=== PATIENT | female | born 1950 | race Caucasian/White ===

== ENCOUNTER 2025-03-11 06:39 | Inpatient (IN) | payer BC, SELFPAY ==
[2025-02-26 09:23] VITALS: BMI 35.9
[2025-02-26 10:02] LABS: Hematocrit 38.6 % (37.0-47.0); Hemoglobin 13.2 g/dL (12.0-16.0); Mean Corp Hgb Conc. 34.2 g/dL (33.0-37.0); Mean Corpuscular Volume 92.3 fL (81.0-99.0); Nucleated Red Blood Cells % 0 %; Platelet Count 147 10^3/uL (130-400); Red Cell Dist. Width 11.8 % (11.5-14.5)
[2025-02-26 10:14] LABS: APTT 29.8 Sec (23.4-35.0); INR 0.99; PT 13.4 Sec (11.4-14.6)
[2025-02-26 12:52] LABS: Blood Urea Nitrogen 20 mg/dl (7-17); Calcium 9.8 mg/dl (8.4-10.2); Carbon Dioxide 30 mmol/L (22-30); Chloride 99 mmol/L (98-107); Estimated Creatinine Clearance 64 ml/min; Glucose 95 mg/dl (70-99); Potassium 4.8 mmol/L (3.5-5.1); Sodium 134 mmol/L (135-145); eGFR > 60.00
[2025-03-11] VITALS (12 sets, daily range): BP systolic 85–162; BP diastolic 51–78; BMI 35.8; BMI 37.4
--- NOTE | 2025-03-11 07:04 | HP.FOC2 ---
Focused History & Physical
Chief Complaint
HPI:
Chief Complaint: AAA
HPI / Indication for Planned Procedure: 75-year-old female with past medical history significant for AAA, COPD, chronic kidney disease stage III, hypertension, GERD, COPD presenting today for planned outpatient EVAR with Dr. Hanson. Patient presents
at baseline health. Denies recent illnesses or trauma. No change in medications since last office visit.
Relevant Past Medical History: Other (A, osteoporosis, atherosclerosis, chronic kidney disease stage IIIa, hypertension, GERD, vitamin D deficiency, COPD, vertigo)
Relevant Social History: Tobacco Use (1 pack/day quit in 2001)
Relevant Family History: Positive for (Alzheimer's disease, stroke, hypertension, COPD)
Relevant Past Surgical History: Positive for (Total hysterectomy, cholecystectomy, cardiac cath)
Review of Systems
Review of Pertinent Systems: All Systems Negative
Medication
See Medication form for detailed medications: Yes
Medication List (including Herbals & OTC):
albuterol sulfate 90 mcg/actuation aerosol inhaler 2 puff inhalation PRN PRN SOB 02/22/25
aspirin 81 mg tablet,delayed release 81 mg PO DAILY 02/22/25
bisoprolol 10 mg-hydrochlorothiazide 6.25 mg tablet 1 tab PO HS 02/22/25
cholecalciferol (vitamin D3) 50 mcg (2,000 unit) capsule (Vitamin D3) 50 mcg PO DAILY 02/22/25
clonidine HCl 0.1 mg tablet 0.05 mg PO DAILY 02/22/25
clonidine HCl 0.1 mg tablet 0.1 mg PO HS 02/22/25
hydrochlorothiazide 12.5 mg tablet 12.5 mg PO DAILY 02/22/25
lisinopril 40 mg tablet 40 mg PO HS 02/22/25
meclizine 12.5 mg tablet 12.5 mg PO TID PRN BPPV 02/22/25
meloxicam 15 mg tablet 15 mg PO PRN PRN PAIN 02/22/25
montelukast 10 mg tablet (Singulair) 10 mg PO HS 02/22/25
multivitamin 1 tab PO DAILY 02/22/25
tiotropium 2.5 mcg-olodaterol 2.5 mcg/actuation mist for inhalation (Stiolto Respimat) 2 puff inhalation DAILY 02/22/25
Medications Reviewed: Yes
Allergies and Reactions
Patient has Allergies: Yes
Noted Allergies and Reactions:
Allergy/AdvReac Type Severity Reaction Status Date / Time
pollen extracts Allergy SEASONAL Verified 02/22/25 09:14
ALLERGIES
Pertinent Physical Exam
All Other Systems: Negative
Head/Neck: Normal
Lungs: Normal
Heart: Normal
Abdomen: Normal
Extremities: Normal
Neurological: Normal
Diagnosis / Assessment
AAA
Plan / Procedure
Planned EVAR with Dr. Hanson for AAA
Anesthesia/Sedation to be done by Anesthesia Provider: Yes
[2025-03-11] MEDS: PERIDEX 0.12% ORAL RINSE 15 ML PO (08:02)
[2025-03-11] MEDS: BACTROBAN NASAL 1 GRAM NASAL (08:03)
[2025-03-11] MEDS: NSS 500 IV (08:06)
--- NOTE | 2025-03-11 08:40 | W.SUR.PREOP ---
Pre-Operative Surgical Note
-
I have examined this patient prior to the performance of the scheduled procedure.
The patient's condition is unchanged from the time of the current History and
Physical and the patient is able to undergo the scheduled procedure.
[2025-03-11 09:47] LABS: ACT-LR - POC 334 Seconds (116-155)
--- NOTE | 2025-03-11 10:36 | W.IMMPOSTOP ---
Surgical Immed Post Op Note
-
Primary Surgeon: John Hanson III, MD
Assisting Surgeon: Ernie Correa MD PGY2
Pre-op Diagnosis: Infrarenal AAA
Post-op Diagnosis: Infrarenal AAA
Procedure Performed: EVAR ([place])
Anesthesia Type: General
Specimen / Cultures: None
Estimated Blood Loss: 4 cc
Complications: None
Operative Findings: EVAR for infrarenal AAA
--- NOTE | 2025-03-11 10:39 | CON.INTV ---
Consultation
Consultation Request
Date/Time Consultation Requested: 03/11/2025 - 1016
Date/Time Consultation Performed: 03/11/2025 - 1032
Requesting Provider: SCAR Jc
Performing Provider: Dr. Mckeon
Reason for Consultation: s/p EVAR
Medical History
-
Chief Complaint: Elective EVAR
History of Present Illness:
75-year-old female with a past medical history of infrarenal abdominal aortic aneurysm, osteoporosis, CKD, hypertension, GERD, history of COPD, sleep apnea on CPAP and vertigo who presents for elective EVAR. Patient known to vascular surgery with
last visit on 02/06/[address] Hanson. CTA from June 2024 shows a 5 cm infrarenal AAA. Conversation held with vascular surgery and operative repair was recommended. Today, patient underwent endovascular aortic aneurysm repair using Endologix
[place] device. There were no immediate complications with EBL 25 cc. Patient transferred to the ICU postoperatively for further care and Tower Switch Operator services consulted for additional management/recommendations.
When I saw the patient she was resting in bed in no acute distress, currently on Cardene at 5 mg/h + normal saline at 80 cc an hour. Heart rate 60, BP via A-line 134/56, and saturating 96% on 2 L/min nasal cannula. Patient's son, Darron and daughter,
Lacey, present at bedside. All questions were answered.
PMHx: AAA, osteoporosis, CKD, hypertension, GERD, vitamin D deficiency, history of COPD, sleep apnea on CPAP, vertigo
PSHx: Total hysterectomy, cholecystectomy, myringotomy with insertion of tube, cardiac cath (09/2020
Past Medical History
Past Medical History: Other (above as per HPI)
Past Surgical History: Other (above as per HPI)
Social History
Tobacco: Former Smoker (Smoked 1 PPD x 32 years; quit 2001)
Alcohol: Occasional
Drug: None
Family History
Family History: Hypertension (Mother) and Other (Father: Alcoholism, chronic airway obstruction; mother: Alzheimer disease, stroke)
Allergies / Home Medications
Allergies
Allergy/AdvReac Type Severity Reaction Status Date / Time
pollen extracts Allergy SEASONAL Verified 02/22/25 09:14
ALLERGIES
Home Medications
�Medication �Instructions �Recorded �Confirmed �Last Taken �Type
albuterol sulfate 90 mcg/actuation 2 puff inhalation PRN PRN SOB 02/22/25 03/11/25 6 Weeks Ago History
aerosol inhaler ~01/28/25
aspirin 81 mg tablet,delayed 81 mg PO DAILY 02/22/25 03/11/25 03/11/25 06:00 History
release
bisoprolol 10 1 tab PO HS 02/22/25 03/11/25 03/10/25 21:30 History
mg-hydrochlorothiazide 6.25 mg
tablet
cholecalciferol (vitamin D3) 50 50 mcg PO DAILY 02/22/25 03/11/25 03/09/25 07:00 History
mcg (2,000 unit) capsule (Vitamin
D3)
clonidine HCl 0.1 mg tablet 0.05 mg PO DAILY 02/22/25 03/11/25 03/11/25 06:00 History
clonidine HCl 0.1 mg tablet 0.1 mg PO HS 02/22/25 03/11/25 03/10/25 21:30 History
hydrochlorothiazide 12.5 mg tablet 12.5 mg PO DAILY 02/22/25 03/11/25 03/10/25 07:00 History
lisinopril 40 mg tablet 40 mg PO HS 02/22/25 03/11/25 03/10/25 21:30 History
meclizine 12.5 mg tablet 12.5 mg PO TID PRN BPPV 02/22/25 03/11/25 3 Months Ago History
~12/09/24
meloxicam 15 mg tablet 15 mg PO PRN PRN PAIN 02/22/25 03/11/25 2 Weeks Ago History
~02/25/25
montelukast 10 mg tablet 10 mg PO HS 02/22/25 03/11/25 03/10/25 21:00 History
(Singulair)
multivitamin 1 tab PO DAILY 02/22/25 03/11/25 03/09/25 07:00 History
tiotropium 2.5 mcg-olodaterol 2.5 2 puff inhalation DAILY 02/22/25 03/11/25 03/11/25 05:00 History
mcg/actuation mist for inhalation
(Stiolto Respimat)
Review of Systems
-
History Source: Patient
All other systems: Negative unless noted
Vitals / Labs / Diagnostic Testing
Vital Signs
Temp Pulse Resp BP Pulse Ox
97.3 F 69 17 138/57 98
03/11/25 11:00 03/11/25 11:15 03/11/25 08:15 03/11/25 11:15 03/11/25 11:15
Lab Data
02/26/25 09:34
Diagnostic Testing:
Physical Exam
-
HEENT: Normocephalic and Anicteric
Cardiovascular: S1/S2 and Peripheral Edema (+1 lower extremity pitting edema bilaterally)
Respiratory: Wheeze (negative), Rales (negative), Rhonchi (negative) and Non-Labored Respirations
GI: Soft, Distended (Abdominal obesity), Non Tender and Normal Bowel Sounds
Neurology: Awake, Alert, Oriented and Tremors (neg)
Skin: Warm, Dry and Other (Puncture sites on bilateral femoral regions with no active bleeding or hematoma appreciated)
General: Respiratory Distress (negative), Comfortable, Fever (negative) and Chills (negative)
Assessment
-
Assessment: 75-year-old female with a past medical history of infrarenal abdominal aortic aneurysm, osteoporosis, CKD, hypertension, GERD, history of COPD, sleep apnea on CPAP and vertigo who presents for elective EVAR. Patient known to vascular
surgery with last visit on 02/06/[address] Hanson. CTA from June 2024 shows a 5 cm infrarenal AAA. Conversation held with vascular surgery and operative repair was recommended. Today, patient underwent endovascular aortic aneurysm repair
using Endologix [place] device. There were no immediate complications with EBL 25 cc. Patient transferred to the ICU postoperatively for further care and Tower Switch Operator services consulted for additional management/recommendations.
Chronic conditions LEAD GENERATOR: AAA, osteoporosis, CKD, hypertension, GERD, vitamin D deficiency, history of COPD, sleep apnea on CPAP, vertigo
Impression:
#Abdominal aortic aneurysm s/p endovascular aortic aneurysm repair using Endologix [place] device (POD #0)
#Obesity (BMI: 37.4)
#History of COPD on Stiolto + prn albuterol
#Sleep apnea on CPAP
#History of vertigo
#Hypertension
#GERD
#CKD
#Former tobacco smoker
Plan:
Postoperative surgical intensive care unit monitoring
Supplemental oxygen as needed to maintain SpO2 88-95% (given Hx of COPD - of note, she does not follow with us in office, and I have no spirometry/PFTs to confirm presence of COPD)
prn nebulized bronchodilators - not currently bronchospastic
Continue spiriva, and add Striverdi --> resume Stiolto upon discharge
Incentive spirometry encouraged 10x per hour for at least 4 hrs a day
Aspiration precautions
Pain control
Neuro and vascular checks per protocol
Maintain MAP>65
Replete electrolytes with K>4, Mg>2
Maintain euglycemia with goal BG 140-180
Vascular surgery following-correspondence and operative notes reviewed
Transfuse blood products as needed to keep Hb>7g/dL, and plt>50k (given post-operative status)
DVT prophylaxis
Early nutrition
Early mobilization
Critical care statement: A total of 44 minutes of critical care time was provided for this patient today. This includes management of unstable vital signs, evaluation of the patient at bedside, reviewing the patient's pertinent medical records
including radiographs, microbiology, laboratory evaluations, and discussion with primary team, consultants, pharmacy, nutrition, physical therapy, case management, charge nurse, critical care nursing, and respiratory therapy.
[2025-03-11] MEDS: SUBLIMAZE 25 MCG IV (11:27)
--- NOTE | 2025-03-11 11:34 | OR.RPT ---
Operative Report
Operative Report
Date of Operation: 03/11/2025
Pre Op Diagnosis: Abdominal aortic aneurysm
Post Op Diagnosis: Abdominal aortic aneurysm
Procedure:
1. Endovascular aortic aneurysm repair using Endologix [place] device:
23 mm [place] main body
12 mm x 140 mm BILATERAL iliac limb extensions
2. Ultrasound guided percutaneous access to the BILATERAL common femoral arteries
3. Proglide closure device to bilateral femoral artery access
Surgeon: John Hanosn III, MD
Toll Lineman: Ernie Correa MD PGY2
Anesthesia: General
Fluoroscopy:
28.3 minutes
1065 mGy
DAP: 328.07
Complications: None
Estimated Blood Loss: 25 cc
History and Indications for Procedure: 75-year-old female with infrarenal abdominal aortic aneurysm
Procedure in Detail: Clemente Correa was correctly identified and placed supine on the operating table. After adequate induction of anesthesia the abdomen, pelvis and bilateral groins were positioned, prepped and draped in the usual sterile fashion.
Preoperative antibiotics were administered. A timeout procedure was performed with the nursing and anesthesia staff confirming the patients identity as well as the nature and laterality of the procedure.
Under ultrasound guidance, bilateral femoral artery sheath access was obtained. The arteries were patent and without significant calcification. Ultrasound images of the femoral arteries were saved to the medical record. A pre-close technique was
performed bilaterally with 2 offset Proglide closure devices. The sutures were secured and tucked under surgical towels for use at the end of the case. 11 Lao sheaths were placed bilaterally. The patient was systemically heparinized.
From the right femoral access an KMP catheter and Bentson wire were advanced to the proximal descending thoracic aorta. The wire was exchanged out through the KMP catheter for a Lunderquist wire. From the left femoral access a Bentson wire was
advanced into the abdominal aorta. A marker pigtail catheter was then placed at the level of L1 for angiographic purposes.
The 23 mm ALTO aortic main body device was then loaded onto the right Lunderquist wire after removing the initial femoral sheath. The delivery system and aortic main body were oriented to the desired position. The delivery system was advanced into
the abdominal aorta. An aortogram was performed and identified the origins of the renal arteries bilaterally. The delivery system was then positioned such that the radiopaque fabric markers were just below the lowest renal artery.
The outer sheath was then retracted until the knob met the handle. The first segment of the suprarenal fixation was then deployed by turning the yellow release knob and pulling. I removed the white cap from the balloon injection port and inflated
the integrated balloon with 5 cc of 4:1 saline:contrast to open the mid crown. I then completely deflated the integrated balloon.
Using the radiopaque markers for orientation, the C-arm was positioned to eliminate parallax. Another aortogram was performed under magnification. The main body was then precisely positioned below the lowest renal artery (left). The pigtail catheter
was pulled down into the aneurysm away from the suprarenal fixation stent. With the main body in the desired location the remainder of the suprarenal fixation stent was deployed by pulling the second release knob.
The polymer was prepared on the back table. The green fill cap was then removed from the polymer injection port on the handle and the fill syringe was attached to it.The autoinjector was connected to the fill syringe and polymer was instilled.
Fluoro was used to intermittently observe filling of the main body with polymer. A timer was started to keep track of the polymer set time.
As the polymer was instilling a glidewire was introduced through the pigtail catheter from the left femoral access. Using a KMP catheter and a glidewire, contralateral gate access was obtained. The catheter was spun in the main body to confirm
proper position. The glidewire and catheter were then advanced proximally. The wire was exchanged out for a short floppy tip Amplatz wire. A marker pigtail catheter was inserted over the stiff wire.
A retrograde arteriogram was performed in an oblique C-arm projection to visualize the iliac bifurcation and to measure lengths. A 12 mm x 140 mm iliac limb was then inserted over the stiff wire and advanced to the proper position with proper
overlap. The limb was deployed without difficulty under roadmap guidance with the distal end in the the common iliac artery, preserving the iliac bifurcation.
After the appropriate time point for polymer fill, the integrated balloon was used to profile of the proximal aortic seal zone.
The third release knob was pulled to release the catheter from the aortic main body. The catheter handle on the main body deployment system was retracted to reseat the nosecone in the delivery system outer sheath.
A retrograde arteriogram was then performed on the right with a pigtail catheter over the stiff wire. The iliac bifurcation was visualized and lengths were measured for the ipsilateral iliac limb. A 12 mm x 140 mm iliac limb was inserted on the
right under fluoro. Proper overlap was obtained. The limb was deployed under roadmap guidance without difficulty.
12 mm angioplasty balloons were inserted over the wires bilaterally and used to profile both iliac limbs simultaneously from the flow divider and proximal seal zone all the way through the limbs and the distal seal zones bilaterally. The left
femoral balloon was readvanced into the main body and the Amplatz wire removed. A pigtail catheter was inserted on the right and advanced to the proximal main body.
A completion aortogram demonstrated an excellent technical result. The aneurysm was excluded. No endoleaks were seen. There was brisk flow through the stent and iliac limbs. The renal arteries were widely patent bilaterally. The iliac bifurcations
were preserved bilaterally.
The Proglide sutures were secured bilaterally after removing the sheaths and wires. Protamine was administered. Additional pressure was applied to the puncture sites bilaterally. Hemostasis was achieved bilaterally. Sterile skin glue was applied.
The patient tolerated the procedure well and was taken to the PACU in stable condition.
Attestation: I was present and responsible for the entire procedure
Signed:
John Hanson III, MD
Vascular Surgery
[facility]
[2025-03-11 11:39] LABS: ALT (SGPT) 17 U/L (0-35); AST (SGOT) 24 U/L (14-36); Albumin 3.8 g/dl (3.5-5.0); Alkaline Phosphatase 92 U/L (38-126); Total Protein 6.9 g/dl (6.3-8.2)
[2025-03-11 11:43] LABS: Hematocrit 37.5 % (37.0-47.0); Hemoglobin 12.8 g/dL (12.0-16.0); Mean Corp Hgb Conc. 34.1 g/dL (33.0-37.0); Mean Corpuscular Volume 90.1 fL (81.0-99.0); Platelet Count 133 10^3/uL (130-400); Red Cell Dist. Width 11.9 % (11.5-14.5)
[2025-03-11 12:16] LABS: Glucose - Point of Care 127 mg/dl (70-99)
[2025-03-11] MEDS: ROXICODONE 5 MG PO ×2 (12:42→18:14)
[2025-03-11] MEDS: NSS 1000 IV ×2 (12:45→21:01)
--- NOTE | 2025-03-11 13:44 | PTCARENOTE ---
Pt admitted from PACU @ 1200 s/p EVAR. Assessment as noted. SR with Cardene infusing to keep SBP within parameters. Afebrile, palpable pedal pulses with cap refill WNL. Flat for 2 hr then HOB to 30deg. 2L NC applied after facemask removed. Saldaña in
place draining clear yellow urine. Pt states saldaña causing most discomfort. Vasc team notified and order recieved to remove saldaña. Saldaña removed without issue. Bilat femoral artery access sites soft, flat, with ecchymosis noted, Neurovasc and wound
sites checks ongoing as ordered. NSS infusing, tolerating clear liq, advancing diet to low chol. A-line leveled and zeroed. Family at bedside and plan of care discussed.
--- NOTE | 2025-03-11 15:13 | PTCARENOTE ---
Small opening noted at right groin site with serosanguineous drainage. Vasc team notified
[2025-03-11] MEDS: HEPARIN 5000 UNITS SC ×2 (16:04→23:59)
--- NOTE | 2025-03-11 16:12 | PTCARENOTE ---
Assessment unchanged. Family at bedside with pt in good spirits. Cardene weaned off at this time.
[2025-03-11] MEDS: LIPITOR 10 MG PO (18:14)
--- NOTE | 2025-03-11 20:00 | PTCARENOTE ---
mental health case manager, pt aaox3, B/L IV WNL- IVF infusing per work list. L rad AL leveled, zeroed. SR HR 60s. RA Sat 93%. POC discussed, call wright with pt.
[2025-03-11] MEDS: ORETIC 6.25 MG PO (20:56)
[2025-03-11] MEDS: ZESTRIL 40 MG PO (21:00)
[2025-03-11] MEDS: ZEBETA 10 MG PO (21:00)
[2025-03-11] MEDS: SINGULAIR 10 MG PO (21:00)
[2025-03-11] MEDS: CATAPRES 0.1 MG PO (21:00)
[2025-03-12 04:21] VITALS: BMI 36.9
[2025-03-12 04:59] LABS: Hematocrit 33.4 % (37.0-47.0); Hemoglobin 11.6 g/dL (12.0-16.0); Mean Corp Hgb Conc. 34.7 g/dL (33.0-37.0); Mean Corpuscular Volume 89.1 fL (81.0-99.0); Red Cell Dist. Width 11.9 % (11.5-14.5)
[2025-03-12 05:06] LABS: INR 1.05; PT 14.0 Sec (11.4-14.6)
[2025-03-12 05:07] LABS: APTT 31.2 Sec (23.4-35.0)
[2025-03-12 06:28] LABS: Platelet Count 130 10^3/uL (130-400)
[2025-03-12 07:22] LABS: Blood Urea Nitrogen 15 mg/dl (7-17); Calcium 8.6 mg/dl (8.4-10.2); Carbon Dioxide 27 mmol/L (22-30); Chloride 105 mmol/L (98-107); Estimated Creatinine Clearance 71 ml/min; Glucose 154 mg/dl (70-99); Potassium 4.5 mmol/L (3.5-5.1); Sodium 135 mmol/L (135-145); eGFR > 60.00
--- NOTE | 2025-03-12 07:25 | W.PN.INTV ---
Today's Communication / Plan
Recommendations
Up OOB as tolerated
Pain control
Postoperative management as per vascular surgery
IS encouraged
Outpatient follow-up with her lime kiln tender, Dr. Rodger Hyde at [facility]
Continue CPAP and sleep
Spiriva + Striverdi while inpatient, and resume Stiolto upon discharge
Patient is being prepared for discharge home. No additional recommendations at this time. [employer] Sawyer/Pulmonary service will now sign off. Please reconsult if there are any additional questions/concerns, or if patient's respiratory status
deteriorates.
Assessment
-
Assessment: 75-year-old female with a past medical history of infrarenal abdominal aortic aneurysm, osteoporosis, CKD, hypertension, GERD, history of COPD, sleep apnea on CPAP and vertigo who presents for elective EVAR. Patient known to vascular
surgery with last visit on 02/06/[address] Hanson. CTA from June 2024 shows a 5 cm infrarenal AAA. Conversation held with vascular surgery and operative repair was recommended. Today, patient underwent endovascular aortic aneurysm repair
using Endologix [place] device. There were no immediate complications with EBL 25 cc. Patient transferred to the ICU postoperatively for further care and [employer] Sawyer services consulted for additional management/recommendations.
Chronic conditions PLASTER MECHANIC: AAA, osteoporosis, CKD, hypertension, GERD, vitamin D deficiency, history of COPD, sleep apnea on CPAP, vertigo
Impression:
#Abdominal aortic aneurysm s/p endovascular aortic aneurysm repair using Endologix [place] device (POD #1)
#Obesity (BMI: 37.4)
#History of COPD on Stiolto + prn albuterol
#Sleep apnea on CPAP
#History of vertigo
#Hypertension
#GERD
#CKD
#Former tobacco smoker
Plan:
Postoperative surgical intensive care unit monitoring
Supplemental oxygen as needed to maintain SpO2 88-95% (given Hx of COPD - of note, she does not follow with us in office, and I have no spirometry/PFTs to confirm presence of COPD)
prn nebulized bronchodilators - not currently bronchospastic
Continue spiriva and Striverdi --> resume Stiolto upon discharge
Incentive spirometry encouraged 10x per hour for at least 4 hrs a day
Aspiration precautions
Pain control
Continue CPAP with sleep (DME: [address] [place] [address])
Neuro and vascular checks per protocol
Maintain MAP>65
Replete electrolytes with K>4, Mg>2
Maintain euglycemia with goal BG 140-180
Vascular surgery following-correspondence and operative notes reviewed
Transfuse blood products as needed to keep Hb>7g/dL, and plt>50k (given post-operative status)
DVT prophylaxis
Early nutrition
Early mobilization
Patient is being prepared for discharge home. She should follow-up with her lime kiln tender at [facility], Dr. Hyde. No additional recommendations at this time. Stone Gang Sawyer/Pulmonary service will now sign off. Thank you for
allowing us to be involved in the care of this patient. Please reconsult if there are any additional questions/concerns, or if patient's respiratory status deteriorates.
Total time spent today was 43 minutes for this encounter. Time includes reviewing laboratory test/imaging results, reviewing pertinent medical records, obtaining and reviewing medical history, performing an appropriate exam, ordering medications,
tests and procedures. Time also includes documentation of this encounter, coordinating patient care and communicating with other healthcare professionals. Total time does not include separately billed tests performed on this date of service.
Subjective Dataa
Subjective Data
Date of Service:
Date of Service: March 12, 2025
Chief Complaint: Stone Gang Sawyer Follow Up
Subjective:
Patient seen and evaluated this morning. No acute events reported overnight. Sitting in chair in no acute distress and walked around the unit this morning with no respiratory limitations. Current heart rate 55 and BP 126/50. Breathing
comfortably on room air. Being prepared for discharge home today.
Review of Systems
General: Other (Negative unless mentioned above)
Objective Data
Data Reviewed
Vital Signs / I&O / Oxygen:
Vital Signs
Temp Pulse Resp BP Pulse Ox
97.6 F 52 16 142/71 97
03/12/25 04:21 03/12/25 05:15 03/12/25 05:15 03/11/25 19:57 03/12/25 05:15
Intake and Output
03/10/25 03/11/25 03/12/25
06:59 06:59 06:59
Intake Total 1627.5 / 1627.5
Output Total 2064 / 2064
Balance -437.5 / -437.5
SaO2 97
Nasal Cannula flow liters per 2
minute
Physical Exam
General: Respiratory Distress (negative), Comfortable, Chills (negative) and Sweats (negative)
HEENT: Normocephalic and Anicteric
Cardiovascular: S1-S2 and Peripheral Edema (Trace bilateral lower extremity edema)
Respiratory: Wheeze (negative), Crackles (Bibasilar), Rhonchi (negative) and Non-Labored Respirations
GI: Soft, Distended (Abdominal obesity), Non Tender and Normal Bowel Sounds
Neurology: AO x 3 and Tremors (negative)
Skin: Warm, Dry, Cyanosis (negative) and Jaundice (negative)
Labs/Micro/Reports
Lab Data
03/12/25 04:29
Laboratory Results
03/12/25
04:29
PT 14.0
INR 1.05
APTT 31.2
[2025-03-12] MEDS: ASPIR LOW (ENTERIC COATED) 81 MG PO (07:36)
[2025-03-12] MEDS: CATAPRES 0.05 MG PO (07:36)
[2025-03-12] MEDS: ORETIC 12.5 MG PO (07:36)
[2025-03-12] MEDS: VITAMIN D3 (cholecalciferol) 50 MCG PO (07:36)
[2025-03-12] MEDS: THERAGRAN 1 TABLET PO (07:36)
[2025-03-12] MEDS: HEPARIN 5000 UNITS SC (07:36)
--- NOTE | 2025-03-12 07:45 | W.PN.VS ---
Today's Communication / Plan
-
POD#1 EVAR
-DC Rosie
-OOB/Ambulate
-Reg diet
-Home meds
-Possible DC later today
Assessment/Plan
-
POD#1 EVAR
-DC Rosie
-OOB/Ambulate
-Reg diet
-Home meds
-Possible DC later today
Subjective Data
-
Date of Service: March 12, 2025
No events overnight
No complaints
Wants to get out of bed
Hanson catheter is out and she is voiding spontaneously
Objective Data
-
Vital Signs
Temp Pulse Resp BP Pulse Ox
97.6 F 50 17 152/62 97
03/12/25 04:21 03/12/25 07:00 03/12/25 07:00 03/12/25 07:36 03/12/25 07:00
Intake and Output
03/11/25 03/12/25 03/13/25
06:59 06:59 06:59
Intake Total 1627.5 / 1627.5
Output Total 2064 / 2064
Balance -437.5 / -437.5
Intake:
IV fluids (Total) 1627.5 / 1627.5
NSS 1540 / 1540
cardene 87.5 / 87.5
Output:
Urine, Hanson 1565 / 1565
Urine, Voided 500 / 500
Other:
Number of approximated SMALL 1
amounts of urine
Number of approximated LARGE 1
amounts of urine
Lab Results
03/12/25 04:29
03/12/25 06:35
Calcium 8.6 mg/dl (8.4-10.2) 03/12/25 06:35
Total Bilirubin 0.6 mg/dl (0.2-1.3) 03/11/25 11:02
Direct Bilirubin 0.2 mg/dl (0.0-0.4) 03/11/25 11:02
AST 24 U/L (14-36) 03/11/25 11:02
ALT 17 U/L (0-35) 03/11/25 11:02
Alkaline Phosphatase 92 U/L (38-126) 03/11/25 11:02
Total Protein 6.9 g/dl (6.3-8.2) 03/11/25 11:02
Albumin 3.8 g/dl (3.5-5.0) 03/11/25 11:02
Physical Exam
-
NAD
Non labored breathing
Alert/oriented
Abd obese, soft, minimal tenderness above the left groin access site
Groin access sites bilaterally are soft, flat. No hematomas palpable
Feet warm bilat
--- NOTE | 2025-03-12 08:00 | PTCARENOTE ---
Assessment as charted. orders reviewed. awaiting vascular team for plan of care.
[2025-03-12 08:01] VITALS: BP 125/63
[2025-03-12] MEDS: STRIVERDI RESPIMAT 2 PUFF INH (09:04)
[2025-03-12] MEDS: SPIRIVA RESPIMAT 2.5 MCG 2 PUFF INH (09:04)
--- NOTE | 2025-03-12 09:08 | PTCARENOTE ---
Patient now OOB to chair. A line has been discontinued. was able to ambulate to bathroom.
[2025-03-12 09:09] VITALS: BP 95/55
[2025-03-12 09:52] VITALS: BP 106/56
[2025-03-12 10:00] VITALS: BP 126/50
--- NOTE | 2025-03-12 10:23 | W.[place]-PDMP ---
[place]PD[place]
-
Checked the [place]- Prescription Drug Monitoring Program website, no red flags identified; safe to proceed with prescription.
--- NOTE | 2025-03-12 10:30 | PTCARENOTE ---
patient ambulated unit hallway x1 no issues.
[2025-03-12 11:00] VITALS: BP 95/71
[2025-03-12 12:00] VITALS: BP 103/59
--- NOTE | 2025-03-12 13:28 | CM ---
Initial assessment completed with patient with son in room. Patient lives alone in a 1st floor apartment with no steps to enter. [employer] patient was independent in ADL's and ambulation, does drive. Has a CPAP and does use at [facility]. No other DME. No
in-home services. Does have a HC-POA. No VA benefits. No psychiatric hospitalizations. PCP is Dr. Kacey Kinsey. Pharmacy is [facility] [place] and [facility]. Discharge POC: Anticipate home with no needs.
--- NOTE | 2025-03-12 13:34 | CM ---
Patient has been medically cleared for discharge to home with no additional skilled services. Daughters will provide support and assistance. Son will transport home.
== END 2025-03-12 13:01 | disposition home or self-care (01) | DRG 269 ==
LOC: ICU 06:39
PROVIDERS: Nurse Practitioner Acute Care; ADMITTING PHYSICIAN Surgery Vascular Surgery; CONSULT PHYSICIAN Internal Medicine Critical Care Medicine; PRIMARYCARE PHYSICIAN Internal Medicine
PROC: 04V03DZ Restriction of Abdominal Aorta with Intraluminal Device, Percutaneous Approach (ICD-10-PCS; 2025-03-11)
DX: I71.43 Infrarenal abdominal aortic aneurysm, without rupture (principal); N18.31 Chronic kidney disease, stage 3a; I12.9 Hypertensive chronic kidney disease with stage 1 through stage 4 chronic kidney disease, or unspecified chronic kidney disease; J44.9 Chronic obstructive pulmonary disease, unspecified; K21.9 Gastro-esophageal reflux disease without esophagitis; E55.9 Vitamin D deficiency, unspecified; M81.0 Age-related osteoporosis without current pathological fracture; E66.9 Obesity, unspecified; G47.30 Sleep apnea, unspecified; F17.210 Nicotine dependence, cigarettes, uncomplicated; Z60.2 Problems related to living alone; Z82.49 Family history of ischemic heart disease and other diseases of the circulatory system; Z82.5 Family history of asthma and other chronic lower respiratory diseases; Z82.0 Family history of epilepsy and other diseases of the nervous system; Z82.3 Family history of stroke; Z90.710 Acquired absence of both cervix and uterus; Z90.49 Acquired absence of other specified parts of digestive tract; Z79.82 Long term (current) use of aspirin; Z79.1 Long term (current) use of non-steroidal anti-inflammatories (NSAID); Z63.72 Alcoholism and drug addiction in family; Z81.1 Family history of alcohol abuse and dependence; Z68.37 Body mass index [BMI] 37.0-37.9, adult; Z79.899 Other long term (current) drug therapy
CPT/HCPCS: 34705; 36415; 71046; 80048; 80076; 82962; 85025; 85027; 85610; 85730; 86850; 86900; 86901; 94640; 94660; C1725; C1760; C1769; C1892; C1894; Q9967